=== PATIENT | male | born 1955 | race Caucasian/White ===

== ENCOUNTER 2017-07-30 13:02 | Emergency (ER) | payer OTHER ==
[~2017-07-30] VITALS: Ht 165.1 cm; Wt 76.2 kg
--- NOTE | 2017-07-30 13:55 | ED CARDIAC/CP/PALPITATIONS ---
History of Present Illness General Chief Complaint: Dyspnea (COPD, CHF, Other) Stated Complaint: LUNG PAIN DURING EXERCISE, - CP Source: patient Exam Limitations: no limitations Vital Signs & Intake/Output Vital Signs & Intake/Output Vital Signs Date Time Temp Pulse Resp B/P B/P Pulse O2 O2 Flow FiO2 Mean Ox Delivery Rate 07/30 1618 99.3 88 18 166/96 97 Room Air 07/30 1526 Room Air Room Air 07/30 1318 98.1 88 16 156/94 97 Room Air Allergies Coded Allergies: NO KNOWN ALLERGIES (07/15/14) Triage Note: 62M REPORTS HE HAD EKG THIS WEEK WHICH CAME BACK GOOD AND WENT TO THE GYM YESTERDAY AND HAD DIFFICULTY WITH BREATHING. REPORTS HE'S HAD URI 6 WEEKS AGO. DENIES ACID REFLUX. COUGH WITH CLEAR SPUTUM, WORST IN AM. +POST NASAL DRIP. DENIES CHEST PAIN OR PRESSURE. JUST REPORTS DIFFICULTY CLEARING THROAT AND GETTING AIR IN WHEN EXERCISING. DENIES LOWER EXTREMITY SWELLING Triage Nurses Notes Reviewed? yes Onset: Abrupt Location: substernal Activities at Onset: activity HPI: Patient presents for evaluation of "lung pain" while exercising. Patient states that he experienced a sharp pain with breathing while exercising on a treadmill. He noticed that he hasn't been able to maintain the same intensity with his workouts recently. He saw his primary care physician yesterday for this pain and states his EKG was "fine". He denies any associated cough wheezing or arm pain. He states that he may have felt a bit of jaw or mouth pain with the chest pain episodes. He is without complaints currently. he denies smoking, alcohol or drug use. Past History Travel History Traveled to [place] past 21 day No Medical History Any Pertinent Medical History? see below for history Tetanus Vaccine: 07/15/14 Surgical History Surgical History: non-contributory Psychosocial History What is your primary language Welsh Tobacco Use: Never used Family History Hx Contributory? No Review of Systems Review of Systems Constitutional: Reports: no symptoms. EENTM: Reports: no symptoms. Respiratory: Reports: no symptoms. Cardiovascular: Reports: chest pain. GI: Reports: no symptoms. Genitourinary: Reports: no symptoms. Musculoskeletal: Reports: no symptoms. Skin: Reports: no symptoms. Neurological/Psychological: Reports: no symptoms. Hematologic/Endocrine: Reports: no symptoms. Immunologic/Allergic: Reports: no symptoms. All Other Systems: Reviewed and Negative Physical Exam Physical Exam Cardiovascular: see below Comments: Gen.: Well-nourished, well-developed, no acute respiratory distress. Head: Normocephalic, atraumatic. Eyes: Normal inspection bilaterally Ears: Normal inspection bilaterally Nose: Normal inspection Throat/mouth : Moist mucosa Neck: Supple, full range of motion, no goiter, equal carotid pulses Heart: Regular rate and rhythm, no murmurs rubs or gallops Lungs: Clear to auscultation bilaterally with normal air entry Chest: Nontender Back: Normal range of motion Abdomen: Soft, nontender, nondistended, normal bowel sounds Extremities: Normal range of motion grossly, equal radial pulses, no cyanosis clubbing or edema Neurologic: Cranial nerves grossly intact, speech is clear Skin: warm and dry Psychiatric: Calm, cooperative, no apparent delusions or hallucinations Core Measures ACS in differential dx? No CVA/TIA Diagnosis No Sepsis Present: No Sepsis Focused Exam Completed? No Progress Differential Diagnosis: AMI, aortic dissection, costochondritis, musculoskeletal pain, pericarditis, pneumonia, pneumothorax, unstable angina Plan of Care: Orders Procedure Date/time Status Regular Diet 07/30 L Active TROPONIN LEVEL 07/30 1700 Complete EKG 07/30 1700 Active Telemetry/Business Process Architect 07/30 1358 Active TROPONIN LEVEL 07/30 1358 Complete MAGNESIUM 07/30 1358 Complete CBC WITHOUT DIFFERENTIAL 07/30 1358 Complete BASIC METABOLIC PANEL 07/30 1358 Complete EKG 07/30 1358 Active Laboratory Tests 07/30/17 1655: Troponin I 0.02 07/30/17 1416: Anion Gap 10, Estimated GFR > 60, BUN/Creatinine Ratio 19.0, Glucose 90, Calcium 10.2, Magnesium 2.0, Troponin I 0.02, CBC w Diff NO MAN DIFF REQ, RBC 5.12, MCV 85.2, MCH 28.7, MCHC 33.7, RDW 14.8 H, MPV 8.5, Gran % 58.2, Lymphocytes % 32.5 , Monocytes % 6.3, Eosinophils % 2.0, Basophils % 1.0, Absolute Granulocytes 3.3 , Absolute Lymphocytes 1.8, Absolute Monocytes 0.4, Absolute Eosinophils 0.1, Absolute Basophils 0.1 Diagnostic Imaging: Discussed w/RAD: Radiology Read. CXR Impression: PATIENT: JUAN HURST PRESENT AGE : 62 PATIENT ACCOUNT NO: [id number] : 57 LOCATION: [facility] ORDERING PHYSICIAN: Smith Matute MD SERVICE DATE: 07/30/17 EXAM TYPE: RAD - XRY-CHEST XRAY, TWO VIEWS EXAMINATION: XR CHEST CLINICAL INFORMATION: Cough, shortness of breath with exercise. Rule out bronchitis versus airway disease. COMPARISON: None TECHNIQUE: 2 views of the chest were obtained. FINDINGS: The cardiomediastinal silhouette is within normal limits in size, though slight prominence of the left ventricular contour is noted. Mild tortuosity of the descending aorta is seen. Lungs bilaterally are symmetrically mildly hyperinflated. No focal consolidation, effusion or pneumothorax is seen. Moderate vertebral spondylosis is seen in the mid and lower thoracic spine. IMPRESSION: Hyperinflated lungs, raising the suspicion of pulmonary arterial hypertension. No focal acute pulmonary process. DICTATED BY: Makayla Guallpa MD DATE/TIME DICTATED:07/30/171408 PHYSICIAN ALLERGIST IMMUNOLOGIST:BRISEIDA DATE/TIME TRANSCRIBED:07/30/171408 CONFIDENTIAL, DO NOT COPY WITHOUT APPROPRIATE AUTHORIZATION. <Electronically signed in Other Vendor System> SIGNED BY: Makayla Guallpa MD 07/30/17 1415 Initial ED EKG: NSR, no ST T wave changes Repeat EKG: unchanged Comments: 07/30/2017 3:17:13 PM I have updated Juan on his test results and he is agreeable to a repeat EKG and troponin. Departure Departure Disposition: HOME OR SELF CARE Condition: Stable Clinical Impression Primary Impression: Atypical chest pain Referrals: Ernesto Nguyen MD (PCP/Family) Additional Instructions: Rest, no exertion. Follow-up with your primary care physician this week for reevaluation of your pain. Since the cause of your symptoms is unclear at this point, Return immediately if any concerns or sudden worsening. Please note that there might be incidental findings in your evaluation that are unrelated to the current emergency department visit. Please notify your primary care doctor about this emergency department visit in order to obtain and review all of the testing performed so that these incidental findings can be monitored as needed. If you had an x-ray performed, please understand that some fractures or other findings may not be seen on the initial set of x-rays. If your symptoms persist you might need a repeat set of x-rays to check for such a fracture. If you had a laceration evaluated, please understand that foreign bodies such as glass or wood may not be visible to the naked eye or on plain x-rays. If the wound becomes red, swollen, increasingly more painful or if there is any drainage from the wound, please have it reevaluated by a physician for the possibility of a retained foreign body. If you're unable to follow up as outlined in the discharge instructions please return to the emergency department. Thank you for choosing the [facility] Emergency Department for your care. It was a pleasure to serve you today. Smith Matute M.D. [facility] Departure Forms: Customer Survey General Discharge Information Critical Care Note Critical Care Note Critical Care Time: non-applicable
--- NOTE | 2017-07-30 14:14 | RADIOLOGY REPORT ---
EXAMINATION: XR CHEST CLINICAL INFORMATION: Cough, shortness of breath with exercise. Rule out bronchitis versus airway disease. COMPARISON: None TECHNIQUE: 2 views of the chest were obtained. FINDINGS: The cardiomediastinal silhouette is within normal limits in size, though slight prominence of the left ventricular contour is noted. Mild tortuosity of the descending aorta is seen. Lungs bilaterally are symmetrically mildly hyperinflated. No focal consolidation, effusion or pneumothorax is seen. Moderate vertebral spondylosis is seen in the mid and lower thoracic spine. IMPRESSION: Hyperinflated lungs, raising the suspicion of pulmonary arterial hypertension. No focal acute pulmonary process.
[2017-07-30 14:26] LABS: ABSOLUTE BASOPHIL COUNT 0.1 /CUMM (0.0-0.2); ABSOLUTE EOSINOPHIL COUNT 0.1 /CUMM (0.0-0.7); ABSOLUTE GRANULOCYTE CT 3.3 /CUMM (1.4-6.5); ABSOLUTE LYMPH COUNT 1.8 /CUMM (1.2-3.4); ABSOLUTE MONOCYTE COUNT 0.4 /CUMM (0.10-0.60); GRANULOCYTE % 58.2 % (42.2-75.2); HEMATOCRIT 43.7 % (42-52); MEAN CORPUSCULAR HGB 28.7 PG (27.0-31.0); MEAN CORPUSCULAR HGB CONC 33.7 G/DL (33.0-37.0); MEAN CORPUSCULAR VOLUME 85.2 FL (80.0-94.0); MEAN PLATELET VOLUME 8.5 FL (7.4-10.4); PLATELET COUNT 277 /CUMM (130-400); RBC DISTRIBUTION WIDTH 14.8 % (11.5-14.5); RED BLOOD CELL CT 5.12 /CUMM (4.70-6.10); WHITE BLOOD CELL COUNT 5.7 /CUMM (4.8-10.8)
[2017-07-30 16:18] VITALS: BP 166/96
== END 2017-07-30 17:50 ==
LOC: ERH 13:02
PROVIDERS: Emergency Medicine
DX: R07.89 Other chest pain (principal)
CPT/HCPCS: 71046; 93005; 93010